=== PATIENT | female | born 1955 | race American Indian/Alaskan Native ===

== ENCOUNTER 2017-01-06 10:18 | Outpatient (CLI) | payer OTHER ==
--- NOTE | 2017-01-06 13:14 | XRay Report ---
CERVICAL SPINE SERIES THREE VIEWS: 01/06/17 10:18:00 CLINICAL: Neck pain. M [age] FINDINGS: Moderate degenerative disc disease with large anterior osteophytes at C5-6 and C6-7. Smaller anterior osteophytes at C4-5. The disc spaces are preserved. C6 inferior endplate sclerosis. Normal odontoid and C1. Normal soft tissues and airway. IMPRESSION: Moderate degenerative disc disease from C4-5 through C6-7.
== END 2017-01-06 10:19 | disposition home or self-care (01) ==
LOC: SPVIMAG 10:18
PROVIDERS: ATTEND Family Medicine
DX: M50.321 Other cervical disc degeneration at C4-C5 level (principal); M50.323 Other cervical disc degeneration at C6-C7 level; M25.78 Osteophyte, vertebrae
CPT/HCPCS: 72040